=== PATIENT | male | born 1985 | race Caucasian/White ===

== ENCOUNTER 2016-10-28 10:44 | Emergency (ER) | payer OTHER ==
[~2016-10-28] VITALS: Ht 180.3 cm; Wt 95.0 kg
[2016-10-28 10:45] VITALS: BP 142/96; PULSE 124; RESP 20; TEMP 98.1; O2SAT 97
[2016-10-28] MEDS ORDERED: CYCL1TAB29 PO (11:01)
[2016-10-28] MEDS ORDERED: ORPH100T99 PO (11:09)
[2016-10-28] MEDS ORDERED: IBUP800T23 PO (11:09)
--- NOTE | 2016-10-28 11:15 | PD ---
HPI Chief Complaint: Headache Time Seen by Provider: 11:09 Travel History International Travel<30 days: No Contact w/Intl Traveler<30days: No Traveled to known affect area: No History of Present Illness HPI 30-year-old male presents the emergency department ongoing right- sided neck and shoulder discomfort and spasm over the past 2 months. Patient states also occasional "spiky headaches" which occurred off and on intermittently for seconds at a time over the past 2 months. Patient does have a history of playing a lot of golf, as well as baseball, as well as moving some things at work which may have aggravated his shoulder. Patient denies other neurological symptoms. His headache is worse is 2/10 according to the patient. Patient was seen given some Flexeril 10 mg approximately one month ago which she states did nothing. He has taken no other medications or performed stretching or heat prior to this. Patient has no known drug allergies. [facility] Social History Alcohol Use: Yes Tobacco Use: No Substance Use: No Allergies-Medications (Allergen,Severity, Reaction): Coded Allergies: No Known Allergies (Unverified , 10/28/16) Reported Meds & Prescriptions Reported Meds & Active Scripts Active Reported Flexeril (Cyclobenzaprine HCl) 10 Mg Tab 10 Mg PO DAILY Review of Systems Except as stated in HPI: all other systems reviewed are Neg General / Constitutional: No: Fever Eyes: No: Visual changes HENT: No: Headaches Cardiovascular: No: Chest Pain or Discomfort Respiratory: No: Shortness of Breath Gastrointestinal: No: Abdominal Pain Genitourinary: No: Dysuria Musculoskeletal: No: Pain Skin: No Rash Neurologic: No: Weakness Psychiatric: No: Depression Endocrine: No: Polydipsia Hematologic/Lymphatic: No: Easy Bruising Physical Exam Narrative GENERAL: Patient appears in no acute distress. SKIN: Warm and dry. Normal color. Normal turgor. No rash. HEAD: Atraumatic. Normocephalic. EYES: Pupils equal and round. No scleral icterus. No injection or drainage. ENT: No nasal bleeding or discharge. Mucous membranes pink and moist. Pharynx is clear. Uvula is midline. NECK: Trachea midline. No bony tenderness or step-off. Neck is supple without significant pain with palpation or motion. CARDIOVASCULAR: Regular rate and rhythm. RESPIRATORY: No accessory muscle use. Clear to auscultation. Breath sounds equal bilaterally. MUSCULOSKELETAL: Extremities without clubbing, cyanosis, or edema. No obvious deformities. Patient has soft tissue tenderness along the right upper trapezius and subscapularis reproducing symptoms. NEUROLOGICAL: Awake and alert. No obvious cranial nerve deficits. Motor grossly within normal limits. Five out of 5 muscle strength in the arms and legs. Normal speech. PSYCHIATRIC: Appropriate mood and affect; insight and judgment normal. Data Data Last Documented VS Vital Signs Date Time Temp Pulse Resp B/P Pulse Ox O2 Delivery O2 Flow Rate FiO2 10/28/16 10:45 98.1 124 20 142/96 97 Room Air MDM Medical Decision Making Medical Screen Exam Complete: Yes Emergency Medical Condition: Yes Differential Diagnosis Right shoulder strain. Muscle spasm. Torticollis. Narrative Course Patient is felt to be medically stable at time of exam. Radiographic imaging is not felt warranted based on the patient's history and physical. Patient will be given ibuprofen 800 mg 3 times daily with food #30. Patient also given Norflex 100 mg twice a day #20. Patient is to use heat followed by ice as discussed. Patient is given exercises and stretching to do to help alleviate his symptoms. Patient is referred to a local primary care physician for further evaluation and treatment as needed. Diagnosis Primary Impression: Muscle strain of right shoulder region Qualified Code: S46.911A - Muscle strain of right shoulder region, initial encounter Referrals: [facility] Patient Instructions: Cervical Neck Strain Exercises (GEN), Exercises for Internal and External Shoulder Rotation (ED), Exercises for Shoulder Abduction and Adduction (ED), Exercises for Shoulder Flexion and Extension (ED), General Instructions Additional Instructions: Radiographic imaging is not felt warranted based on the patient's history and physical. Patient will be given ibuprofen 800 mg 3 times daily with food #30. Patient also given Norflex 100 mg twice a day #20. Patient is to use heat followed by ice as discussed. Patient is given exercises and stretching to do to help alleviate his symptoms. Patient is referred to a local primary care physician for further evaluation and treatment as needed. Scripts Orphenadrine ER 12 HR (Orphenadrine CR)100 Mg [id number] Mg PO Q12HR #20 TAB Prov:Jovi Pfeiffer MD 10/28/16 Ibuprofen 800 Mg [id number] Mg PO Q8H PRN (Pain/Inflammation) #30 TAB Prov:Jovi Pfeiffer MD 10/28/16 Disposition: 01 DISCHARGE HOME Condition: Stable Nancy,Lorenzo F. PA Oct 28, 2016 11:15
== END 2016-10-28 11:36 | disposition home or self-care (01) ==
LOC: NEPK 10:44
DX: S46.911A Strain of unspecified muscle, fascia and tendon at shoulder and upper arm level, right arm, initial encounter (principal); X58.XXXA Exposure to other specified factors, initial encounter
CPT/HCPCS: 99283